=== PATIENT | female | born 1975 | race Caucasian/White ===

== ENCOUNTER 2016-12-08 10:05 | Inpatient (IN) | payer OTHER ==
[2016-12-08] MEDS ORDERED: fentaNYL Inj 100 MCG/2 ML VIAL IVP ONE ×2 (10:48→16:45)
[2016-12-08] MEDS ORDERED: NORMAL SALINE 10 ML SYRINGE FLUSH IVP PRN ×3 (10:48→17:31)
[2016-12-08] MEDS ORDERED: ONDANSETRON 4 MG/2 ML VIAL IVP ONE (10:48)
--- NOTE | 2016-12-08 11:35 | PDOC ---
Fall HPI - General Chief Complaint: Fall Stated Complaint: RIGHT SIDED PAIN / S/P FALL Date Seen by Provider: 12/08/16 Time Seen by Provider: 11:00 - History of Present Illness Initial Comments: Patient is a very nice 41-year-old woman who is here in the emergency Department complaining about right-sided abdominal and flank pain and shortness of breath and pain with coughing. Apparently a day and a half to 2 days ago she was stepping outside of her Or when she slipped and fell and ended up landing on her elbow or shoulder and her chest wall and her right sided abdomen and flank. She said it was a substantial significantly traumatic fall she was short of breath had belly pain and chest pain but did not want to seek medical attention. She fought through the day yesterday though she had a lot of pain was unable to do anything except for leg in bed. She comes to the emergency department today as she is feeling worse. She is having some baseline dyspnea she also feels like there is fluid inside the right side of her chest and she is having a lot of pain. She denies fever or chills. She denies hemoptysis. She denies hematuria. She has been able to eat and drink a little bit but has no appetite. Have you received a tetanus shot in the past 10 years?: Unknown Past Medical History - heen HEENT History: Denies History Cardiovascular History: Denies History Respiratory History: Denies History Gastrointestinal History: Denies History Genitourinary History: Denies History Musculoskeletal History: Denies History Neurological History: Denies History Blood Disorders: Denies History Tobacco Use: Current Every Day Smoker Substance Use Type: None Significant Family History: No pertinent family hx Past Medical History Reviewed: Reviewed - No Changes ROS - Limitations ROS Limitations: No Limitations Constitution: REPORTS: Denies Symptoms Cardiovascular: REPORTS: Denies Cardiac Symptoms Genitourinary: REPORTS: Denies Symptoms Fall Physical Exam - General Appearance General Appearance: POSITIVE: Alert, Cooperative, No Acute Distress - HEENT HEENT: POSITIVE: Head Inspection Nml, Eyes Inspection Nml, Ears Inspection Nml - Neck Neck: POSITIVE: Non Tender, Painless ROM - Respiratory / CVS Respiratory / CVS: POSITIVE: Other ( has diminished breath sounds on the right. Rib tenderness in the right flank and right side with bruising in the right flank as well.) - Abdomen Additional Abdominal Details: Moderate tenderness throughout the abdomen some mild guarding and rebound in the right upper quadrant and right flank. Bowel sounds present - Genital / Rectal Genital / Rectal: POSITIVE: Normal Ext. Inspection - Neuro / Psych Neuro / Psych: POSITIVE: Oriented X3 - Skin Skin: POSITIVE: Intact, Warm, Dry - Back Back: POSITIVE: CVA Tenderness (R) - Extremities Additional Extremities Details: Some tenderness and bruising about her right elbow but she has full movement there and appropriate strength no other significant extremity issues Fall Progress - Results Reviewed by me Xrays/CTs/US Reviewed by me: Yes Radiology Findings: Pneumo/possible hemothorax Lab Results Reviewed: Yes Lab Results:: Laboratory Results 12/08/16 12/08/16 Range/Units 11:39 12:27 WBC 11.18 H (4.8-10.8) 10^3/uL RBC 3.88 L (4.20-5.40) 10^6/uL Hgb 13.0 (12.0-16.0) g/dL Hct 38.8 (37.0-47.0) % MCV 100.0 H (81-99) FL MCH 33.5 H (27-31) PG MCHC 33.5 (33-37) g/dL RDW Std Deviation 47.1 (39-50) fL RDW Coeff of [place]uch[place] 13.1 (11.5-14.5) % Plt Count 400 H (140-350) 10*3/uL MPV 9.8 (7.4-12.2) FL Immature Gran % (Auto) 0.2 (0-5) % Neut % (Auto) 76.0 (50-80) % Lymph % (Auto) 13.8 (10-50) % [place] % (Auto) 8.4 (5-15) % Eos % (Auto) 1.2 (0-8) % Baso % (Auto) 0.4 (0-1) % Immature Gran # (Auto) 0.02 10*3/UL Neut # (Auto) 8.50 10*3/UL Lymph # (Auto) 1.54 10*3/uL [place] # (Auto) 0.94 H (0.3-0.8) 10*3/UL Eos # (Auto) 0.13 10*3/UL Baso # (Auto) 0.05 10*3/UL WBC Morphology Comment Normal morphology (NORM) Plt Morphology Comment Normal morphology (NORM) RBC Morph Comment Normal morphology (NORM) Sodium 134 L (135-145) meq/L Potassium 3.6 L (3.8-5.2) meq/L Chloride 107 (98-112) meq/L Carbon Dioxide 17 L (23-33) meq/L Anion Gap 10 (5-20) BUN 11 (7-22) mg/dL Creatinine 1.1 (0.50-1.20) mg/dL Estimated GFR 54 (>60 ml/min/1.73m(2)) BUN/Creatinine Ratio 10.00 (6-20) Glucose 96 (78-110) mg/dL Calculated Osmolality 276.0 (267-292) mOsm/kg Calcium 8.9 (8.7-10.7) mg/dL Total Bilirubin 0.7 (0.3-1.2) mg/dL AST 33 (8-39) IU/L ALT 23 (9-52) IU/L Alkaline Phosphatase 65 (38-126) IU/L Total Protein 6.6 (6.1-8.0) g/dL Albumin 3.8 (3.5-4.8) g/dL Globulin 2.7 (2.50-4.10) g/dL Albumin/Globulin Ratio 1.40 (1.3-2.0) mg/g Ur Collection Type Clean catch urine Urine Color Yellow Urine Clarity Clear (CLEAR) Urine pH 5.5 (5.0-8.5) Ur Specific [place] 1.015 (1.005-1.030) Urine Protein Trace (NEG) mg/dl Urine Glucose (UA) Negative (NEG) mg/dL Urine Ketones Negative (NEG) Urine Occult Blood Traced-lysed (NEG) Urine Nitrate Negative (NEG) Urine Bilirubin Small (NEG) Urine Urobilinogen 0.2 (0.2) EU/dL Ur Leukocyte Esterase Negative (NEG) Urine RBC 1-3 (NONE) /hpf Urine WBC 8-10 (NONE) Ur Squamous Epith Cells Rare (NONE) Ur Renal Epithelial Cell None (NONE) Urine Crystals None Urine Bacteria Few (NONE) Urine Casts None (NONE) Urine Mucus None (NONE) Urine Trichomonas None (NONE) Urine Yeast None (NONE) Ur Culture Indicated? Culture set - Patient's Progress MDM / ED Course: This patient has what appears to be a for sure pneumothorax may be a hemothorax or pleural effusion there. Ultimately I think she needs be evaluated by general surgery to determine whether chest tube placement is going to be necessary today or not. I have contacted our general surgeon button and buckle maker who has agreed to evaluate the patient. Patient will likely be admitted for observation if she gets chest tube placed. Patient Care Time - Estimated PCT Patient Care Time (In Minutes): 45 Vital Signs - Recent Vital Signs Vital Signs: Vital Signs (Last 8 hours) Temp Pulse Resp BP Pulse Ox 12/08/16 10:29 98.1 F 80 16 102/63 95 - VS Reviewed Vital Signs Reviewed: Yes (vitals reviewed and currently benign) Discharge Clinical Impression: Pneumothorax Qualifiers: Pneumothorax type: traumatic Encounter type: initial encounter Qualifier Code: (S27.0XXA) Traumatic pneumothorax, initial encounter Rib fractures Qualifiers: Encounter type: initial encounter Rib fracture type: multiple ribs Fracture type: closed Laterality: right Qualifier Code: (S22.41XA) Multiple fractures of ribs, right side, initial encounter for closed fracture Discharge Disposition: Admit to Inpatient Condition: Good Follow Up With: NONE,NONE [Primary Care Provider] - Date Decision to Admit to Inpatient: 12/08/16 Time Decision to Admit to Inpatient: 16:16
[2016-12-08 12:20] LABS: CALCIUM 8.9 mg/dL (8.7-10.7); HEMATOCRIT 38.8 % (37.0-47.0); MEAN CORPUSCULAR HEMOGLOBIN 33.5 PG (27-31); MEAN CORPUSCULAR HGB CONC 33.5 g/dL (33-37); RED BLOOD COUNT 3.88 10^6/uL (4.20-5.40); SERUM ALBUMIN 3.8 g/dL (3.5-4.8)
[2016-12-08 12:23] LABS: MEAN PLATELET VOLUME 9.8 FL (7.4-12.2)
[2016-12-08 12:24] LABS: BASOPHILS # (AUTO) 0.05 10*3/UL; BASOPHILS % (AUTO) 0.4 % (0-1); EOSINOPHILS # (AUTO) 0.13 10*3/UL; EOSINOPHILS % (AUTO) 1.2 % (0-8); LYMPHOCYTES # (AUTO) 1.54 10*3/uL; MONOCYTES # (AUTO) 0.94 10*3/UL (0.3-0.8); MONOCYTES % (AUTO) 8.4 % (5-15); PLATELET MORPHOLOGY COMMENT NORMAL MORPHOLOGY (NORM); RBC MORPHOLOGY COMMENT NORMAL MORPHOLOGY (NORM); WBC MORPHOLOGY COMMENT NORMAL MORPHOLOGY (NORM)
[2016-12-08 12:33] LABS: CLARITY,URINE CLEAR (CLEAR); COLOR,URINE YELLOW; GLUCOSE, URINE (UA) NEGATIVE (NEG); OCCULT BLOOD,URINE TRACED-LYSED (NEG); PH,URINE 5.5 (5.0-8.5); PROTEIN,URINE TRACE mg/dl (NEG); URINE SAMPLE TYPE CLEAN CATCH URINE
[2016-12-08 12:34] LABS: BILIRUBIN,URINE SMALL (NEG); NITRATE,URINE NEGATIVE (NEG); UROBILINOGEN,URINE 0.2 EU/dL (0.2)
[2016-12-08] MEDS ORDERED: Sodium Chloride 0.9% 1,000 ML PRIMARY IV ONE (12:34)
[2016-12-08 12:43] LABS: BACTERIA,URINE FEW; SQUAMOUS EPITHELIAL CELL,UR RARE
[2016-12-08] MEDS ORDERED: cefTRIAXone Inj 1 GM in Sodium Chloride 0.9% 100 ML IV ONE (14:02)
--- NOTE | 2016-12-08 14:16 | DI ---
CT CHEST W/CONTRAST,12/08/2016 10:47 AM: Clinical History: Fall with flank bruising, dyspnea and abdominal pain. Previous Exam: None available. Findings: Multiple helically acquired CT images are obtained through the chest following the administration of 65 cc of Isovue 300, and demonstrate multiple right posterior lateral displaced rib fractures involvi ng the right posterior ninth, 10th and 11th rib fractures with a small (approximately 5%) right sided pneumothorax with a large right pleural effusion and some subsegmental atelectasis. The thyroid is unremarkable. The pulmonary arteries and aorta are within normal limits. Surrounding soft tissues are unremarkable. The anterior abdominal wall is unremarkable. Impression: 1. Right-sided 5% pneumothorax. 2. Slightly displaced right posterior lateral 11th, 10th and ninth ribs. 3. Large right pleural effusion.
--- NOTE | 2016-12-08 14:16 | DI ---
CT ABD W/CN AND PELVIS W/CN,12/08/2016 10:47 AM: Clinical History: Status post fall with left flank pain and bruising Previous Exam: None at this facility. Findings: Multiple helically acquired CT images are obtained through the abdomen and pelvis following the intra venous administration of 65 cc of Isovue 300, and demonstrate no evidence of free fluid. The urinary bladder is unremarkable. The pelvis is unremarkable except for minimal degenerative changes of sacroi liac joints. The appendix is normal. The large and small bowel loops are unremarkable. There is no lymphadenopathy . The liver, spleen, adrenals, pancreas, kidneys and gallbladder are unremarkable. There is a right pneumothorax noted which is not well evaluated on this AP study. There is also a lar ge right pleural effusion. Impression: 1. Right posterior lateral ninth 10th and 11th right rib fractures. 2. Right pneumothorax. 3. Right large pleural effusion not well evaluated on this exam. 4. No acute intra-abdominal or intrapelvic pathology.
[2016-12-08] MEDS ORDERED: KETAMINE 100 MG/1 ML - 5 ML ONE (15:05)
[2016-12-08] MEDS ORDERED: MIDAZOLAM 5 MG/1 ML ONE (15:05)
[2016-12-08] MEDS ORDERED: Sodium Chloride 0.9% 1,000 ML with Potassium Chloride Inj 40 MEQ IV SCH ×4 (15:15→17:31)
[2016-12-08] MEDS ORDERED: Acetaminophen 1000mg Inj 100 ML IV ONE (15:46)
[2016-12-08] MEDS ORDERED: KETOROLAC 15 MG/1 ML VIAL ONE (15:46)
[2016-12-08] MEDS ORDERED: Lidocaine 1% 10 MG/ML - 20 ML VIAL IM ONE (16:00)
--- NOTE | 2016-12-08 16:25 | GEN.OPNOTE ---
Operative Note Surgery Date: 12/08/16 Preoperative Diagnosis: Right pneumohemothorax Postoperative Diagnosis: Right pneumohemothorax Procedure: Right tube thoracotomy Surgeon: Drake Bowen MD Anesthesia Provider: Ashley Levy CRNA Anesthesia Type: Local, MAC Estimated Blood Loss (mL): 10 Fluids: Normal saline please see anesthesia notes Findings: 400 mL of blood out of the chest cavity Operative Summary: After informed written consent, the patient was given IV sedation emergency department. Timeout was performed. I then prepped draped sterile fashion the right chest cavity. Infiltrated 2% Xylocaine for local anesthetic. Made a small incision in the chest cavity in the midaxillary line. Blunt dissection was carried up and then just cavity is entered through the intercostal space in the fifths base. I did take a couple different times to get the tube placed through the opening. We got our proximal be 500 mL of blood. The chest tube was secured in place. Chest x-ray showed full expansion the lungs and chest tube in good position.
--- NOTE | 2016-12-08 16:28 | PDOC ---
History and Physical - History of Present Illness Date and Time of Service: 12/08/2016 approximately 3 PM Chief Complaint: Left hemopneumothorax History of Present Illness: This is a 41-year-old female who fell on December 05 while camping. She slipped on the stairs and fell on the stairs. She's had excruciating pain since that time. She's developed acute shortness of breaths morning therefore is came and. Patient had a chest x-ray and a chest CT scan which showed pneumohemothorax. It is felt that this represented more blood than serous fluid. Past Medical History Tobacco Use: Current Every Day Smoker Substance Use Type: None Review of Systems - Constitutional Constitutional: REPORTS: Negative System Review - Respiratory Respiratory: REPORTS: Negative System Review - Cardiovascular Cardiovascular: DENIES: Negative System Review, Chest Pain, Edema, Syncope, Palpitations, Orthopnea, Paroxysmal Nocturnal Dyspnea, Other, See HPI Exam - Vitals Vital Signs: Vital Signs Temperature 98.1 F Temperature Source Temporal Artery Scan Pulse Rate [Pulse Oximeter] 80 Respiratory Rate 16 Blood Pressure [Left Arm] 102/63 Pulse Ox 95 Oxygen Delivery Method Room Air Height 5 ft 7 in Weight 75.296 kg - General General Appearance: POSITIVE: No Acute Distress, Cooperative - Head Head Exam: POSITIVE: Normal Inspection, Normocephalic - Eye Eye Exam: POSITIVE: Normal Appearance, PERRL, EOMI - Neck Neck Exam: POSITIVE: Normal Inspection, Full ROM - Respiratory Additional Respiratory Exam Details: Patient has decreased breath sounds on the right normal breath sounds on the left - Cardiovascular Cardiovascular Exam: POSITIVE: RRR, No Murmur Results - Labs CBC and BMP: 12/08/16 11:39 12/08/16 11:39 Labs - Last 24 Hours: Laboratory Results 12/08/16 12/08/16 Range/Units 11:39 12:27 WBC 11.18 H (4.8-10.8) 10^3/uL RBC 3.88 L (4.20-5.40) 10^6/uL Hgb 13.0 (12.0-16.0) g/dL Hct 38.8 (37.0-47.0) % MCV 100.0 H (81-99) FL MCH 33.5 H (27-31) PG MCHC 33.5 (33-37) g/dL RDW Std Deviation 47.1 (39-50) fL RDW Coeff of [place]ucho 13.1 (11.5-14.5) % Plt Count 400 H (140-350) 10*3/uL MPV 9.8 (7.4-12.2) FL Immature Gran % (Auto) 0.2 (0-5) % Neut % (Auto) 76.0 (50-80) % Lymph % (Auto) 13.8 (10-50) % [place] % (Auto) 8.4 (5-15) % Eos % (Auto) 1.2 (0-8) % Baso % (Auto) 0.4 (0-1) % Immature Gran # (Auto) 0.02 10*3/UL Neut # (Auto) 8.50 10*3/UL Lymph # (Auto) 1.54 10*3/uL [place] # (Auto) 0.94 H (0.3-0.8) 10*3/UL Eos # (Auto) 0.13 10*3/UL Baso # (Auto) 0.05 10*3/UL WBC Morphology Comment Normal morphology (NORM) Plt Morphology Comment Normal morphology (NORM) RBC Morph Comment Normal morphology (NORM) Sodium 134 L (135-145) meq/L Potassium 3.6 L (3.8-5.2) meq/L Chloride 107 (98-112) meq/L Carbon Dioxide 17 L (23-33) meq/L Anion Gap 10 (5-20) BUN 11 (7-22) mg/dL Creatinine 1.1 (0.50-1.20) mg/dL Estimated GFR 54 (>60 ml/min/1.73m(2)) BUN/Creatinine Ratio 10.00 (6-20) Glucose 96 (78-110) mg/dL Calculated Osmolality 276.0 (267-292) mOsm/kg Calcium 8.9 (8.7-10.7) mg/dL Total Bilirubin 0.7 (0.3-1.2) mg/dL AST 33 (8-39) IU/L ALT 23 (9-52) IU/L Alkaline Phosphatase 65 (38-126) IU/L Total Protein 6.6 (6.1-8.0) g/dL Albumin 3.8 (3.5-4.8) g/dL Globulin 2.7 (2.50-4.10) g/dL Albumin/Globulin Ratio 1.40 (1.3-2.0) mg/g Ur Collection Type Clean catch urine Urine Color Yellow Urine Clarity Clear (CLEAR) Urine pH 5.5 (5.0-8.5) Ur Specific [place] 1.015 (1.005-1.030) Urine Protein Trace (NEG) mg/dl Urine Glucose (UA) Negative (NEG) mg/dL Urine Ketones Negative (NEG) Urine Occult Blood Traced-lysed (NEG) Urine Nitrate Negative (NEG) Urine Bilirubin Small (NEG) Urine Urobilinogen 0.2 (0.2) EU/dL Ur Leukocyte Esterase Negative (NEG) Urine RBC 1-3 (NONE) /hpf Urine WBC 8-10 (NONE) Ur Squamous Epith Cells Rare (NONE) Ur Renal Epithelial Cell None (NONE) Urine Crystals None Urine Bacteria Few (NONE) Urine Casts None (NONE) Urine Mucus None (NONE) Urine Trichomonas None (NONE) Urine Yeast None (NONE) Ur Culture Indicated? Culture set Assessment and Plan - Patient Problems (1) Pneumothorax Current Visit: Yes Status: Acute Qualifiers: Pneumothorax type: traumatic Encounter type: initial encounter Qualifier Code(s): (S27.0XXA) Traumatic pneumothorax, initial encounter (2) Rib fractures Current Visit: Yes Status: Acute Qualifiers: Encounter type: initial encounter Rib fracture type: multiple ribs Fracture type: closed Laterality: right Qualifier Code(s): (S22.41XA) Multiple fractures of ribs, right side, initial encounter for closed fracture (3) Hemothorax on right Current Visit: Yes Status: Acute - Assessment / Plan Additional Assessment/Plan Details: I believe the patient is a chest tube prevent trapped lung and an the potential of empyema. I discussed the risks benefits with her. She like to have IV sedation. Patient had a chest tube place then be admitted to the hospital
[2016-12-08] MEDS ORDERED: fentaNYL Inj 100 MCG/2 ML VIAL ONE (16:51)
--- NOTE | 2016-12-08 17:20 | DI ---
XR CXR 1VW,12/08/2016 4:10 PM: Clinical History: Chest tube placement Previous Exam: None at this facility. Findings: A single frontal radiograph of the chest is obtained, and demonstrates a new chest tube within the ri ght hemithorax. There is some subcutaneous air are noted. The rib fractures seen on CT scan are not well appreciated on this exam. Overlying EKG leads are seen. Impression: Right chest tube with a small residual right pleural effusion.
[2016-12-08] MEDS ORDERED: Acetaminophen 1000mg Inj 1,000 MG in Premix 1 BAG IV SCH (17:31)
[2016-12-08] MEDS ORDERED: KETOROLAC 15 MG/1 ML VIAL IVP SCH (17:31)
[2016-12-08] MEDS ORDERED: HYDROcodone/IBUPROFEN 7.5 MG/200 MG TABLET PO PRN (17:31)
[2016-12-08] MEDS ORDERED: Ondansetron ODT Tab 4 MG TAB PO PRN (17:31)
[2016-12-08] MEDS ORDERED: LIDOCAINE W/ SODIUM BICARB 0.5 ML SYR SUBD PRN (17:31)
[2016-12-08] MEDS: MORPHINE SULFATE 2 MG/1 ML IVP PRN ×2 (18:18→22:36)
[2016-12-08] MEDS ORDERED: KETOROLAC 15 MG/1 ML VIAL IVP PRN (18:40)
[2016-12-08] MEDS ORDERED: Acetaminophen 1000mg Inj 1,000 MG in Premix 1 BAG IV PRN (18:40)
[2016-12-08] MEDS: oxyCODONE IR Tab 5 MG TAB PO PRN (19:07)
[2016-12-09] MEDS: oxyCODONE IR Tab 5 MG TAB PO PRN (02:39)
[2016-12-09] MEDS: MORPHINE SULFATE 2 MG/1 ML IVP PRN (04:28)
[2016-12-09 08:20] VITALS: RESP 18; TEMP 97.6
[2016-12-09] MEDS ORDERED: oxyCODONE/APAP 7.5/325 Tab 1 TAB TAB PO PRN (08:49)
--- NOTE | 2016-12-09 09:00 | DI ---
XR CXR 1VW,12/09/2016 7:29 AM: Clinical History: Pneumothorax Previous Exam: 12/08/2016 Findings: A single frontal radiograph of the chest is obtained, and demonstrate a stable right pleural catheter . There is no residual pneumothorax. The cardiomediastinum is unremarkable. Impression: Right pleural catheter in good position.
--- NOTE | 2016-12-09 09:10 | DCSUMMARY ---
Discharge Summary Admit Date: 12/08/16 Discharge Date: 12/09/16 Admitting Diagnosis: right pneumohemothorax; multiple rib fractures Discharge Diagnosis: Same as admitting diagnosis Primary Surgery and Date: Chest tube placement (tube thoracotomy) on 12/08/2016 Hospital Course: Patient was admitted the hospital just to place for the evacuation of the hemothorax. Patient first postoperative day had no evidence of air leak and had complete resolution of the pneumothorax. The only fluid come out with serosanguineous no more blood. Therefore the chest tube was removed. Postprocedure films showed chest fully reexpanded. Patient is able to discharge to home on Percocets. Exam - Vitals Vital Signs: Vital Signs Temperature 97.6 F Temperature Source Temporal Artery Scan Pulse Rate [Pulse Oximeter] 73 Respiratory Rate 18 Blood Pressure [Left Arm] 104/62 Pulse Ox 95 Oxygen Flow Rate 1 Oxygen Delivery Method Nasal Cannula Height 5 ft 7 in Weight 78.925 kg - General General Appearance: POSITIVE: No Acute Distress, Cooperative - Respiratory Respiratory Exam: POSITIVE: Clear to Auscultation - Bilaterally, Breathing Non Labored Patient Problems - Patient Problem List (1) Pneumothorax Current Visit: Yes Status: Acute Qualifiers: Pneumothorax type: traumatic Encounter type: initial encounter Qualifier Code(s): (S27.0XXA) Traumatic pneumothorax, initial encounter (2) Rib fractures Current Visit: Yes Status: Acute Qualifiers: Encounter type: initial encounter Rib fracture type: multiple ribs Fracture type: closed Laterality: right Qualifier Code(s): (S22.41XA) Multiple fractures of ribs, right side, initial encounter for closed fracture (3) Hemothorax on right Current Visit: Yes Status: Acute
--- NOTE | 2016-12-09 10:02 | DI ---
XR CXR 1VW,12/09/2016 8:41 AM: Clinical History: Status post chest tube removal. Previous Exam: December 09, 2016 at 8:02 AM Findings: A single frontal radiograph of the chest is obtained, and demonstrates new removal of a right chest t ube. There is some blunting of the right costophrenic angle. There is some subcutaneous free air within the right chest wall. Impression: Status post removal of the chest tube without residual pneumothorax.
--- NOTE | 2016-12-09 10:34 | CRNA.PROGR ---
Anesthesia Note Anesthesia Progress Note: Saw pt as she was being dismissed. She states amnestic re: procedure events. Discussed sleeping in recliner vs bed, coughing and deep breathing, and incentive spirometry. Respiratory therapy to give instructions on Incentive spirometry.
--- NOTE | 2016-12-09 10:50 | DI ---
XR CXR 1VW,12/08/2016 5:31 PM: Clinical History: Pneumothorax Previous Exam: December 08, 2016 Findings: A single frontal radiograph of the chest is obtained after insertion of a right-sided chest tube. There is a small right pleural effusion. Skeletal structures are unremarkable. The cardiomediastinum is unremarkable. Impression: Right pleural effusion in good position.
== END 2016-12-09 10:25 | disposition home or self-care (01) | DRG 201 ==
LOC: ER 10:05 → MED/SURG 16:04
PROVIDERS: ADMIT Surgery; ATTEND Surgery
PROC: 0W9930Z Drainage of Right Pleural Cavity with Drainage Device, Percutaneous Approach (ICD-10-PCS; principal; 2016-12-08)
DX: S27.2XXA Traumatic hemopneumothorax, initial encounter (principal); W17.89XA Other fall from one level to another, initial encounter
CPT/HCPCS: 36415; 71010; 71260; 74177; 80053; 81003; 81015; 85025; 87088; 94761; 96361; 96365; 96375; 99285; J0131; J0696; J1885; J2250; J2270; J2405; J3010; J3480; J7030; J7050

== ENCOUNTER 2016-12-10 07:35 | Emergency (ER) | payer OTHER ==
[2016-12-10] MEDS ORDERED: NORMAL SALINE 10 ML SYRINGE FLUSH IVP PRN (07:52)
[2016-12-10] MEDS ORDERED: Sodium Chloride 0.9% 1,000 ML PRIMARY IV ONE (07:52)
[2016-12-10 08:13] VITALS: RESP 16; TEMP 97.2
[2016-12-10 08:14] LABS: BLOOD UREA NITROGEN 5 mg/dL (7-22); BUN/CREATININE RATIO 7.14 (6-20); CALCIUM 8.2 mg/dL (8.7-10.7); EST GLOMERULAR FILTRATION > 60 (>60 ml/min/1.73m(2)); SERUM ALBUMIN 3.2 g/dL (3.5-4.8)
[2016-12-10 08:25] LABS: HEMATOCRIT 35.1 % (37.0-47.0); HEMOGLOBIN 11.8 g/dL (12.0-16.0); MEAN CORPUSCULAR HEMOGLOBIN 33.3 PG (27-31); MEAN CORPUSCULAR HGB CONC 33.6 g/dL (33-37); MEAN CORPUSCULAR VOLUME 99.2 FL (81-99); MEAN PLATELET VOLUME 9.7 FL (7.4-12.2); RED BLOOD COUNT 3.54 10^6/uL (4.20-5.40)
[2016-12-10 08:26] LABS: BASOPHILS # (AUTO) 0.02 10*3/UL; BASOPHILS % (AUTO) 0.1 % (0-1); EOSINOPHILS # (AUTO) 0.26 10*3/UL; EOSINOPHILS % (AUTO) 1.9 % (0-8); LYMPHOCYTES # (AUTO) 0.95 10*3/uL; MONOCYTES # (AUTO) 0.91 10*3/UL (0.3-0.8); MONOCYTES % (AUTO) 6.5 % (5-15); NEUTROPHILS # (AUTO) 11.85 10*3/UL; NEUTROPHILS % (AUTO) 84.5 % (50-80); PLATELET MORPHOLOGY COMMENT NORMAL MORPHOLOGY (NORM); RBC MORPHOLOGY COMMENT NORMAL MORPHOLOGY (NORM); WBC MORPHOLOGY COMMENT SEE COMMENTS (NORM)
--- NOTE | 2016-12-10 08:50 | PDOC ---
General Adult HPI - General Chief Complaint: Respiratory Complaint Stated Complaint: shortness of breath Date Seen by Provider: 12/10/16 Time Seen by Provider: 07:37 Source: POSITIVE: Patient, Spouse, Old records Exam Limitations: POSITIVE: No limitations Nurse's Notes Reviewed & Considered: Yes - History of Present Illness Initial Comment: The patient is a 41 year old female. This past Tuesday, approximately 5 days ago , the patient slid down the steps on her camper, falling onto her right posterior thorax. Patient was seen in the emergency room at that time and was found to have a large right hemothorax and a small pneumothorax. Patient was admitted by Dr. Sheeahn, surgeon who performed a tube thoracostomy and drained the hemopneumothorax. Reportedly he drained about 600 mL of blood. Patient was discharged from the hospital yesterday. This morning the patient states that she coughed and when she did so she noted some bleeding from the thoracostomy site, right lateral thorax. She also complains of some increased shortness of breath. Patient has no fevers or chills. She smokes. She is not on any end-stage or anticoagulants. CT scan of the abdomen and pelvis was done in the emergency room when she was first seen and that study revealed no intra- abdominal or intrapelvic pathology. She fractured her right ribs 9 and 10 and 11. Have you received a tetanus shot in the past 10 years?: Unknown Body Location Affected: REPORTS: Chest Timing: REPORTS: Abrupt (As above increased pain and some blood coming from recent right tube thoracostomy site this morning after coughing) Duration: 1-3 hours Severity: Moderate Quality: REPORTS: "Pain" Context: REPORTS: Coughing (This morning), Recent Trauma (As above), Recent Surgery (Tube thoracostomy, right 5 days ago) Modifying Factors: improves with: Movement, Other (Pain with direct palpation) Similar Symptoms Previously: Yes (as above) Recent Care Received: REPORTS: Recently Seen, Treated by MD, Hospitalized Any Prior Injuries Related to Current Complaint?: Yes (3 right rib fractures with hemothorax and small pneumothorax 5 days ago) - Patient Home Medications Home Medications: Home Medications Oxycodone HCl/Acetaminophen [Percocet 7.5-325 Mg Tablet] 1 each PO Q4H PRN PRN # 60 tablet 12/09/16 - Patient Allergies Allergies/Adverse Reactions: Allergies Allergy/AdvReac Type Severity Reaction Status Date / Time No Known Allergies Allergy Verified 12/10/16 07:51 Past Medical History - heen HEENT History: Denies History Cardiovascular History: Denies History Respiratory History: Shortness of Breath Additional Respiratory History: HX HEMOTHORAX,FREE AIR AND FX L 9, 10. 11TH RIB ON 12/05 Gastrointestinal History: Denies History Genitourinary History: Denies History Endocrine History: Denies History Musculoskeletal History: Denies History Prosthesis or Implant: No Neurological History: Denies History Blood Disorders: Denies History Psychiatric History: Denies History History of Sexually Transmitted Diseases: No Additional Female Reproductive History: TUBAL LIGATION Cancer History: Denies History In Past Year Been Physically Harmed or Verbally Threatened: No History of MDRO: No History of Other Communicable Diseases: No Tobacco Use: Current Every Day Smoker Alcohol Use: Occasionally Substance Use Type: None Previous Surgical History: No Significant Family History: No pertinent family hx Past Medical History Reviewed: Reviewed - No Changes ROS - Limitations ROS Limitations: No Limitations Constitution: REPORTS: Denies Symptoms Cardiovascular: REPORTS: Chest Pain (Right sided from rib fractures) Respiratory: REPORTS: Cough Non Productive, Hurts To Breathe, Shortness Of Breath Neurological: REPORTS: Denies Neuro Symptoms Gastrointestinal: REPORTS: Denies GI Symptoms Endocrine: REPORTS: Denies Symptoms Musculoskeletal: REPORTS: Denies MS Symptoms Genitourinary: REPORTS: Denies Symptoms Eyes: REPORTS: Denies Symptoms ENT: REPORTS: Denies Symptoms Skin: REPORTS: Denies Skin Symptoms Lympathic: REPORTS: Denies Lympathic Symptoms Immunologic: POSITIVE: Denies Symptoms Psychiatric: POSITIVE: Denies Psych Symptoms General Adult Exam - General Appearance General Appearance: POSITIVE: Alert, Cooperative, Mild Distress - HEENT HEENT: POSITIVE: Head Inspection Nml, Eyes Inspection Nml, Ears Inspection Nml, Nose Inspection Nml, Oral/Dental Inspect. Nml, Pharynx Inspect. Nml, PERRL, EOMI - Pupils Pupil Size: 3 mm: Bilateral (PERRLA) - Neck Neck: POSITIVE: Normal Inspection, Thyroid Normal - Respiratory Respiratory: POSITIVE: See Diagram. NEGATIVE: No Respiratory Distress (Pain with breathing; oxygen saturations on arrival 83% on room air; 94% on 2 L), Breath Sounds Normal (Breath sounds diminished right lung base), Chest Non- Tender (RIBS tender, lower) - Cardiovascular Cardiovascular: POSITIVE: Regular Rate & Rhythm, No Murmur, No Gallop, PMI Normal Peripheral Pulses: Radial (R): 2+, Radial (L): 2+ - Abdomen Abdomen: Soft: (All Quadrants), Normal Bowel Sounds: (All Quadrants), Denies Tenderness: (All Quadrants), No Splenomegaly: (All Quadrants), No Hepatomegaly: (All Quadrants), No Guarding: (All Quadrants), No Rebound: (All Quadrants), No Palpable Pulse: (All Quadrants), No Palpabale Mass: (All Quadrants), No Distention: (All Quadrants), No Rigidity: (All Quadrants) - Back Back: POSITIVE: Thoracic Tenderness. NEGATIVE: Normal Inspection (Ecchymosis right posterior back), CVA Tenderness, Lumbosacral Tenderness - Skin Skin: POSITIVE: Other (Ecchymosis right posterior back) - Extremities Extremity: Non-Tender: (All Extremities), Normal ROM: (All Extremities), Normal Inspection: (All Extremities) - Neurological / Psychological Neurological: POSITIVE: Oriented X3, training officer Normal As Tested, Motor Normal, Sensation Normal, 5, 6 Images - Complete Complete: 1 - Site of recent tube thoracostomy; some blood on dressing; not actively bleeding 2 - Rib tenderness 3 - Rib tenderness 4 - Ecchymosis General Adult Progress - Results Reviewed by me Xrays/CTs/US Reviewed by me: Yes Discussed with Radiologist: No Radiology Findings: Right pleural effusion probably somewhat larger than on chest x-ray done yesterday. CTA of chest his pending Lab Results Reviewed: Yes Lab Results:: Laboratory Results 12/10/16 Range/Units 07:59 WBC 14.02 H (4.8-10.8) 10^3/uL RBC 3.54 L (4.20-5.40) 10^6/uL Hgb 11.8 L (12.0-16.0) g/dL Hct 35.1 L (37.0-47.0) % MCV 99.2 H (81-99) FL MCH 33.3 H (27-31) PG MCHC 33.6 (33-37) g/dL RDW Std Deviation 45.5 (39-50) fL RDW Coeff of Lucho 12.9 (11.5-14.5) % Plt Count 426 H (140-350) 10*3/uL MPV 9.7 (7.4-12.2) FL Immature Gran % (Auto) 0.2 (0-5) % Neut % (Auto) 84.5 H (50-80) % Lymph % (Auto) 6.8 L (10-50) % [place] % (Auto) 6.5 (5-15) % Eos % (Auto) 1.9 (0-8) % Baso % (Auto) 0.1 (0-1) % Immature Gran # (Auto) 0.03 10*3/UL Neut # (Auto) 11.85 10*3/UL Lymph # (Auto) 0.95 10*3/uL [place] # (Auto) 0.91 H (0.3-0.8) 10*3/UL Eos # (Auto) 0.26 10*3/UL Baso # (Auto) 0.02 10*3/UL WBC Morphology Comment See comments (NORM) Plt Morphology Comment Normal morphology (NORM) RBC Morph Comment Normal morphology (NORM) Sodium 133 L (135-145) meq/L Potassium 3.9 (3.8-5.2) meq/L Chloride 107 (98-112) meq/L Carbon Dioxide 19 L (23-33) meq/L Anion Gap 7 (5-20) BUN 5 L (7-22) mg/dL Creatinine 0.7 (0.50-1.20) mg/dL Estimated GFR > 60 (>60 ml/min/1.73m(2)) BUN/Creatinine Ratio 7.14 (6-20) Glucose 100 (78-110) mg/dL Calculated Osmolality 272.0 (267-292) mOsm/kg Calcium 8.2 L (8.7-10.7) mg/dL Total Bilirubin 0.5 (0.3-1.2) mg/dL AST 18 (8-39) IU/L ALT 21 (9-52) IU/L Alkaline Phosphatase 60 (38-126) IU/L Total Protein 5.8 L (6.1-8.0) g/dL Albumin 3.2 L (3.5-4.8) g/dL Globulin 2.6 (2.50-4.10) g/dL Albumin/Globulin Ratio 1.20 L (1.3-2.0) mg/g - Patient's Progress Pain Medication Addressed: POSITIVE: Yes (Morphine sulfate) School/Work Release Addressed: POSITIVE: Not Applicable Re-Examine Time: 08:40 Re-Examine Comment: Results of available laboratory studies and chest x-ray discussed with patient and her . CTA of chest ordered; INR and d-dimer not yet returned. Care of patient turned over to Dr. Wiley, ER physician coming on duty. Case discussed with . Status: POSITIVE: Unchanged, Re-Examined Antibiotics Given: No Patient Care Time - Estimated PCT Patient Care Time (In Minutes): 45 Vital Signs - Recent Vital Signs Vital Signs: Vital Signs (Last 8 hours) Temp Pulse Resp BP Pulse Ox 12/10/16 08:13 94 12/10/16 07:40 97.2 F 82 16 122/80 83 - VS Reviewed Vital Signs Reviewed: Yes Discharge Clinical Impression: Hemothorax on right, Fracture of multiple ribs Discharge Disposition: Other (Care transferred to Dr. Wiley [id number]) Condition: Stable Follow Up With: NONE,NONE [Primary Care Provider] - Care Transferred To: Dr. [id number]
[2016-12-10] MEDS ORDERED: MORPHINE SULFATE 4 MG/1 ML IVP ONE (08:56)
--- NOTE | 2016-12-10 09:33 | PDOC ---
Transfer of Care - Care Accepted Time Care Transferred: 08:45 Report from Transferring Physician Received: Yes MDM / ED Course: Patient awoke this morning with bleeding from a thoracotomy site. She reported to the emergency room for evaluation. Patient's history indicates that she fell on her Burst out several days ago resulting in 3 broken ribs, pneumothorax , hemothorax, and significant thoracic bruising. She was admitted to the hospital by the general surgeon and a chest tube was placed. Chest tube was pulled yesterday and the patient was discharged home. Home Medications: Home Medications Oxycodone HCl/Acetaminophen [Percocet 7.5-325 Mg Tablet] 1 each PO Q4H PRN PRN # 60 tablet 12/09/16 Amlodipine Besylate 5 mg PO DAILY 12/10/16 Gabapentin 1,200 mg PO TID 12/10/16 Lisinopril 20 mg PO DAILY 12/10/16 Allergies/Adverse Reactions: Allergies No Known Allergies Allergy (Verified 12/10/16 10:37) Vital Signs Reviewed: Yes Nurse's Notes Reviewed & Considered: Yes - Pending Patient Care Items Pending Patient Care Items: POSITIVE: Labs, Pain Control, CT / MRI Results - Expected Patient Outcome Tentative Impression of Patient: Bleeding from thoracostomy site. Expected Disposition: POSITIVE: Home Expected Disposition of Patient: My expectation for this patient is that she will be discharged home pending results of her CT scan. He said no further bleeding here in the emergency department. - Re-Evaluation of Patient Re-Examine Time:: 11:50 Disposition of Patient: POSITIVE: Discharged Counseled: POSITIVE: Patient, Family, RE: Lab Results, RE: Radiology Results, RE : DX, RE: Need for F/U Pending Test Results Documented: Yes Clinical Impression Documented: Yes - Results Reviewed Lab Results Reviewed by Me: Yes Lab Results: Laboratory Results 12/10/16 12/10/16 Range/Units 07:55 07:59 WBC 14.02 H (4.8-10.8) 10^3/uL RBC 3.54 L (4.20-5.40) 10^6/uL Hgb 11.8 L (12.0-16.0) g/dL Hct 35.1 L (37.0-47.0) % MCV 99.2 H (81-99) FL MCH 33.3 H (27-31) PG MCHC 33.6 (33-37) g/dL RDW Std Deviation 45.5 (39-50) fL RDW Coeff of Lucho 12.9 (11.5-14.5) % Plt Count 426 H (140-350) 10*3/uL MPV 9.7 (7.4-12.2) FL Immature Gran % (Auto) 0.2 (0-5) % Neut % (Auto) 84.5 H (50-80) % Lymph % (Auto) 6.8 L (10-50) % [place] % (Auto) 6.5 (5-15) % Eos % (Auto) 1.9 (0-8) % Baso % (Auto) 0.1 (0-1) % Immature Gran # (Auto) 0.03 10*3/UL Neut # (Auto) 11.85 10*3/UL Lymph # (Auto) 0.95 10*3/uL [place] # (Auto) 0.91 H (0.3-0.8) 10*3/UL Eos # (Auto) 0.26 10*3/UL Baso # (Auto) 0.02 10*3/UL WBC Morphology Comment See comments (NORM) Plt Morphology Comment Normal morphology (NORM) RBC Morph Comment Normal morphology (NORM) PT 9.5 L (9.7-11.4) secs INR 0.90 (0.00-5.90) N/A D-Dimer 3.82 H (0.00-0.59) mg/L Sodium 133 L (135-145) meq/L Potassium 3.9 (3.8-5.2) meq/L Chloride 107 (98-112) meq/L Carbon Dioxide 19 L (23-33) meq/L Anion Gap 7 (5-20) BUN 5 L (7-22) mg/dL Creatinine 0.7 (0.50-1.20) mg/dL Estimated GFR > 60 (>60 ml/min/1.73m(2)) BUN/Creatinine Ratio 7.14 (6-20) Glucose 100 (78-110) mg/dL Calculated Osmolality 272.0 (267-292) mOsm/kg Calcium 8.2 L (8.7-10.7) mg/dL Total Bilirubin 0.5 (0.3-1.2) mg/dL AST 18 (8-39) IU/L ALT 21 (9-52) IU/L Alkaline Phosphatase 60 (38-126) IU/L Total Protein 5.8 L (6.1-8.0) g/dL Albumin 3.2 L (3.5-4.8) g/dL Globulin 2.6 (2.50-4.10) g/dL Albumin/Globulin Ratio 1.20 L (1.3-2.0) mg/g - Consult Recommendations:: UR to change your wound dressing as needed. You may shower, but no soaking in water. Your to follow-up per Dr. Bowen instructions. Patient Care Time - Estimated PCT Patient Care Time (In Minutes): 30 Vital Signs - Recent Vital Signs Vital Signs: Vital Signs (Last 8 hours) Temp Pulse Pulse Resp BP Pulse Ox 12/10/16 09:36 108/78 92 12/10/16 08:13 94 12/10/16 07:52 88 12/10/16 07:40 97.2 F 82 16 122/80 83 Discharge Clinical Impression: Hemothorax on right, Ribs, multiple fractures Discharge Disposition: Discharged to Home Condition: Stable Patient Instructions Given at Discharge: Rib Fracture (ED) Follow Up With: NONE,NONE [Primary Care Provider] -
--- NOTE | 2016-12-10 10:08 | DI ---
XR CXR 2VW PA/LAT,12/10/2016 7:53 AM: Clinical History: Trauma with right hemothorax. Previous Exam: December 09, 2016 Findings: A single frontal radiograph of the chest is obtained, and demonstrates a large right pleural effusion unchanged from the prior exam. Impression: Right pleural effusion.
--- NOTE | 2016-12-10 10:34 | DI ---
CT CTA CHEST NONCORONARY W/WO,12/10/2016 8:32 AM: Clinical History: Dyspnea and recent right hemothorax. Previous Exam: December 08, 2016 Findings: Multiple helically acquired CT images are obtained through the chest following a CT chest angiogram p rotocol, 65 cc of Isovue 300, and demonstrate airspace disease within the lung bases. There is a small right pleural effusion. There are multiple stable right posterior rib fractures. There is some subcutaneous emphysema noted. There is no residual pneumothorax. The pulmonary arteries are normal without filling defect or truncation. Impression: 1. Airspace disease within the lung bases most likely representing atelectasis. This could represent atelectasis or edematous lung. 2. Stable posterior rib fractures. 3. No evidence of pulmonary embolism.
[2016-12-10] MEDS ORDERED: GLYCERIN SUPPOSITORY RECTAL SCH (11:30)
== END 2016-12-10 12:25 | disposition home or self-care (01) ==
LOC: ER 07:35
DX: J94.2 Hemothorax (principal); R06.02 Shortness of breath; R05 Cough; S22.41XA Multiple fractures of ribs, right side, initial encounter for closed fracture; Z72.0 Tobacco use; W10.8XXA Fall (on) (from) other stairs and steps, initial encounter
CPT/HCPCS: 71020; 71275; 80053; 85025; 85379; 85610; 96374; 99283 ×2; J2270; J7030